=== PATIENT | female | born 1930 | race Caucasian/White ===

== ENCOUNTER 2020-06-11 16:58 | Emergency (ER) | payer SELFPAY ==
[~2020-06-11] VITALS: Ht 165.1 cm; Wt 58.1 kg
[2020-06-11 17:00] VITALS: BP 126/68
--- NOTE | 2020-06-11 17:15 | NUR ---
PT SON SIGNED AMA FORM AND SPOKED TO .
--- NOTE | 2020-06-11 17:15 | NUR ---
Patient does not wish to proceed with medical care recommended by Dr. Vang. Patient given information related to possible complications, up to and including , which could occur as a result of leaving the hospital at this time. Patient verbalizes understanding of risks involved due to leaving against medical advice. Patient has signed AMA form.
== END 2020-06-11 17:18 | disposition left against medical advice (07) ==
LOC: ER 17:00
DX: R55 Syncope and collapse (principal); F03.90 Unspecified dementia, unspecified severity, without behavioral disturbance, psychotic disturbance, mood disturbance, and anxiety; I10 Essential (primary) hypertension; Z98.890 Other specified postprocedural states